=== PATIENT | male | born 1960 | race Caucasian/White ===

== ENCOUNTER 2018-01-21 10:37 | Emergency (ER) | payer MEDICARE ==
[2018-01-21] MEDS ORDERED: DIAZEPAM 5 MG TABLET PO ONE (10:46)
[2018-01-21] MEDS ORDERED: MORPHINE SULFATE 5 MG/ML PFS IVP ONE (10:46)
[2018-01-21] MEDS ORDERED: ACETAMINOPHEN 1,000 MG/100 ML BTL IVPB ONE (10:46)
--- NOTE | 2018-01-21 10:49 | Emergency Department Record ---
History of Present Illness - General Chief Complaint: Back Pain/Injury Stated Complaint: BACK PAIN Time Seen by Provider: 01/21/18 10:40 Source: Patient Mode of Arrival: Ambulatory Limitations: No limitations - History of Present Illness Initial Comments: 57 yo male presents from radiology with low back pain and spasms. He was laying down for a CT of the chest. Upon trying to sit up his low back tightened up. He has pain with any twisting or moving. No abdominal pain. The pain radiates to the legs. No weakness or numbness. No immediate changes in sensation, bowel or bladder function. He is remission from lung cancer. The CT is follow up of prior studies. Complaint: Back pain, Back injury -: Minutes(s) (20) Place: Other (Radiology) Radiation: Left leg, Right leg Severity: Moderate Quality: Aching, Sharp Consistency: Constant Improves With: Immobilization Worsens With: Movement, Sitting upright, Walking Context: Bending (onset sitting up after a CT scan moments ago) Associated Symptoms: Denies other symptoms - Related Data Previous Rx's Medication Instructions Recorded Diazepam [Valium] 5 mg PO Q8H #15 tab 01/21/18 Hydrocodone/Acetaminophen [[place] 1 each PO Q6H #15 tablet 01/21/18 7.5-325 Tablet] Allergies Allergy/AdvReac Type Severity Reaction Status Date / Time No Known Drug Allergies Allergy Verified 01/21/18 10:40 Review of Systems Constitutional: Denies: Chills, Fever, Malaise, Weakness Eyes: Denies: Eye discharge ENT: Denies: Congestion, Throat pain Respiratory: Denies: Cough, Dyspnea, Hemoptysis, Stridor, Wheezes Cardiovascular: Denies: Chest pain, Palpitations, Syncope Endocrine: Denies: Fatigue, Polydipsia, Polyuria Gastrointestinal: Denies: Abdominal pain, Diarrhea, Nausea, Vomiting Genitourinary: Denies: Dysuria, Frequency, Urgency Musculoskeletal: Reports: Back pain, Myalgia. Denies: Arthralgia, Joint swelling, Neck pain Skin: Denies: Bruising, Change in color, Rash Neurological: Denies: Headache, Numbness, Weakness Psychiatric: Denies: Anxiety Hematological/Lymphatic: Denies: Easy bleeding, Easy bruising Past Medical History - SOCIAL HISTORY Smoking Status: Current some day smoker - RESPIRATORY Hx Respiratory Disorders: Yes Hx COPD: Yes Comment:: pneumonthorax: SPONTAEOUS X 2 - CARDIOVASCULAR Hx Cardio Disorders: Yes Hx Deep Vein Thrombosis: Yes Hx Hypertension: Yes - NEURO Hx Neuro Disorders: No - GI Hx GI Disorders: No - Hx Genitourinary Disorders: No - ENDOCRINE Hx Endocrine Disorders: No - MUSCULOSKELETAL Hx Musculoskeletal Disorders: Yes Hx Back Injury: Yes Comment:: rhizotomy x2 - PSYCH Hx Psych Problems: No - HEMATOLOGY/ONCOLOGY Hx Hematology/Oncology Disorders: Yes Hx Cancer: Yes (LUNG) Family Medical History Hx Cancer: Father Physical Exam - General General Appearance: Alert, Oriented x3, Cooperative, No acute distress Limitations: No limitations - Head Head exam: Atraumatic, Normocephalic, Normal inspection - Eye Eye exam: Normal appearance, PERRL. negative: Conjunctival injection, Scleral icterus - ENT ENT exam: Normal exam, Mucous membranes moist Ear exam: Normal external inspection Nasal Exam: Normal inspection Mouth exam: Normal external inspection Teeth exam: Normal inspection Throat exam: Normal inspection - Neck Neck exam: Normal inspection, Full ROM. negative: Tenderness - Respiratory Respiratory exam: Normal lung sounds bilaterally. negative: Respiratory distress - Cardiovascular Cardiovascular Exam: Regular rate, Normal rhythm, Normal heart sounds Peripheral Pulses: 2+: Dorsalis Pedis (R) - GI/Abdominal GI/Abdominal exam: Soft. negative: Distended, Guarding, Pulsatile mass, Rebound , Rigid, Tenderness - Rectal Rectal exam: Deferred - exam: Deferred - Extremities Extremities exam: Normal inspection, Normal capillary refill (brisk). negative : Calf tenderness, Full ROM (straight leg raise causes low back pain), Pedal edema, Tenderness - Back Back exam: Reports: Normal inspection, Muscle spasm, Paraspinal tenderness, Tenderness. Denies: CVA tenderness (R), CVA tenderness (L), Vertebral tenderness Image of Body Front/Back: 1 - paraspinal tenderness, pain with any ROM, normal inspection - Neurological Neurological exam: Alert, Oriented X3 - Psychiatric Psychiatric exam: Normal affect, Normal mood. negative: Agitated, Anxious - Skin Skin exam: Dry, Intact, Normal color, Warm Course - Reevaluation(s) Reevaluation #1: Multiple prior chest, chest and abdominal CT's reviewed from the past. No prior acute findings, no aneurysms, no dissections, no active cancer. S/P thoracotomy. 01/21/18 10:50 The patient is starting to get relief I called radiology to have his outpatient CT reviewed at a STAT read this morning. 01/21/18 11:14 01/21/18 12:[address] of the chest was reviewed No acute process. Chronic prior findings unchanged. See full report. The pain is much more tolerable. He still hurts with twisting or moving DC home with instructions for close follow up with DR Pacheco as well as reasons to return 01/21/18 12:55 Dr Pacheco was notified of the ED visit. The patient can follow up with him Disposition Disposition: Discharge Clinical Impression: Lumbar strain Disposition: Home, Self-Care Condition: (1) Good Instructions: Low Back Strain (ED) Additional Instructions: Call Dr Pacheco for close follow up this week Return to the ER if you have any uncontrolled pain or any new concerns Prescriptions: Diazepam [Valium] 5 mg PO Q8H #15 tab Hydrocodone/Acetaminophen [[place] 7.5-325 Tablet] 1 each PO Q6H #15 tablet Forms: Patient Portal Access Time of Disposition: 12:30 Quality - Quality Measures Quality Measures: N/A - Blood Pressure Screening Does Patient Have Any of the Following: Active Dx of HTN Blood Pressure Classification: Hypertensive Reading Systolic Measurement: 184 Diastolic Measurement: 76 Screening for High Blood Pressure: Patient Exclusion, Hx of HTN [G9744]
[2018-01-21] MEDS ORDERED: HYDROCODONE/APAP 7.5/325MG TABLET PO ONE (12:28)
== END 2018-01-21 14:05 | disposition home or self-care (01) ==
LOC: ER 10:37
DX: S39.012A Strain of muscle, fascia and tendon of lower back, initial encounter (principal); X50.9XXA Other and unspecified overexertion or strenuous movements or postures, initial encounter; Y92.238 Other place in hospital as the place of occurrence of the external cause; I10 Essential (primary) hypertension; F17.210 Nicotine dependence, cigarettes, uncomplicated; Z85.118 Personal history of other malignant neoplasm of bronchus and lung; I73.9 Peripheral vascular disease, unspecified; Z51.81 Encounter for therapeutic drug level monitoring; Z79.01 Long term (current) use of anticoagulants
CPT/HCPCS: 99284 ×2; 96374; 96375; 85025; 85610; 80053; 71260; Q9967; J3490; J2270

== ENCOUNTER 2019-01-15 16:46 | Observation (INO) | payer MEDICARE ==
--- NOTE | 2019-01-15 17:04 | Emergency Department Record ---
History of Present Illness - General Chief complaint: ENT Stated complaint: ALMENDAREZ AND EAR BLEEDING Time Seen by Provider: 01/15/19 17:02 Source: Patient Mode of Arrival: Ambulatory Limitations: No limitations - History of Present Illness Initial comments: The patient is here due to the acute onset of L ear pain about 6 hours ago which then led to a bad ALMENDAREZ. The patient has had a sinus infection and drainage for about 2 weeks. This AM the L ear began hurting and then he felt a "POP" and then pain in the L ear and head. The patient then states the L ear began bleeding also. The ALMENDAREZ is mainly on the L side of the head. He denies any fall, trauma, or injury and the patient is on Warfarin due to PVD. There has been no confusion, vomiting, or neck pain. MD complaint: Ear pain Onset/Timin -: Hour(s) Location: L ear Severity: Moderate Severity scale (1-10): 8 Quality: Aching, Other Consistency: Constant Improves with: None Worsens with: None Context-Epistaxis: Warfarin use Associated Symptoms: Discharge from ear - Related Data Allergies Allergy/AdvReac Type Severity Reaction Status Date / Time No Known Drug Allergies Allergy Verified 01/15/19 16:55 Travel Screening - Travel/Exposure Within Last 30 Days Have you traveled within the last 30 days?: No - Travel/Exposure Within Last Year Have you traveled outside the [place] in the last year?: No - Additonal Travel Details Have you been exposed to anyone with a communicable illness?: No - Travel Symptoms Symptom Screening: None Review of Systems Constitutional: Denies: Chills, Fever Eyes: Denies: Eye discharge ENT: Reports: Congestion Respiratory: Reports: Cough. Denies: Dyspnea Cardiovascular: Denies: Arrhythmia, Chest pain Endocrine: Denies: Fatigue Gastrointestinal: Denies: Nausea Genitourinary: Denies: Dysuria Musculoskeletal: Denies: Arthralgia, Back pain Skin: Denies: Bruising Neurological: Denies: Abnormal gait, Confusion Psychiatric: Denies: Anxiety Past Medical History - SOCIAL HISTORY Smoking Status: Current some day smoker Alcohol Use: Occasional Alcohol Use Comment: 2 beers daily Drug Use: Occasional Drug Use Detail:: Marijuana - RESPIRATORY Hx Respiratory Disorders: Yes Hx COPD: Yes Comment:: pneumonthorax: SPONTAEOUS X 2 - CARDIOVASCULAR Hx Cardio Disorders: Yes Hx Deep Vein Thrombosis: Yes Hx Hypertension: Yes - NEURO Hx Neuro Disorders: No - GI Hx GI Disorders: No - Hx Genitourinary Disorders: No - ENDOCRINE Hx Endocrine Disorders: No - MUSCULOSKELETAL Hx Musculoskeletal Disorders: Yes Hx Back Injury: Yes Comment:: rhizotomy x2 - PSYCH Hx Psych Problems: No - HEMATOLOGY/ONCOLOGY Hx Hematology/Oncology Disorders: Yes Hx Cancer: Yes (LUNG) Family Medical History Any Significant Family History?: Yes Hx Cancer: Father Physical Exam - General General Appearance: Alert, Oriented x3, Cooperative, No acute distress - Head Head exam: Atraumatic, Normocephalic, Normal inspection - Eye Eye exam: Normal appearance, PERRL - ENT ENT exam: negative: Normal exam, TM's normal bilaterally (The R TM is normal but the L TM is not visualized due to blood in the canal.) Throat exam: Normal inspection. negative: Tonsillar erythema, Tonsillar exudate - Neck Neck exam: Normal inspection, Full ROM. negative: Lymphadenopathy, Meningismus (The neck is very supple.), Tenderness - Respiratory Respiratory exam: Normal lung sounds bilaterally. negative: Respiratory distress - Cardiovascular Cardiovascular Exam: Regular rate, Normal rhythm, Normal heart sounds - GI/Abdominal GI/Abdominal exam: Soft, Normal bowel sounds. negative: Tenderness - Extremities Extremities exam: Normal inspection, Full ROM, Normal capillary refill. negative: Tenderness - Back Back exam: Reports: Normal inspection - Neurological Neurological exam: Alert, Normal gait, Oriented X3. negative: Abnormal gait, Altered, Motor sensory deficit - Skin Skin exam: negative: Rash Course Vital Signs 01/15/19 16:56 Temperature 97.8 F Pulse Rate 75 Respiratory 20 Rate Blood Pressure 163/69 Pulse Ox 96 - Reevaluation(s) Reevaluation #1: The patient is doing better but is still having L ear pain. There is no further bleeding from the L ear. I did discuss the need to stay in the hospital overnight due to the patient's INR being 10 and the patient does agree. I then did discuss the case with Dr. Pacheco and he does agree with the plan for a short stay admission and recheck of the INR in the AM. 01/15/19 18:19 Medical Decision Making - Data Complexity MDM Data: Labs Ordered and/or Reviewed, X-Ray Ordered and/or Reviewed (Head CT: Neg for any acute changes.) - Lab Data Result diagrams: 01/15/19 17:15 01/15/19 17:15 Disposition Disposition: Admit Clinical Impression: Coumadin toxicity Qualifiers: Encounter type: initial encounter Injury intent: accidental or unintentional Qualified Code(s): T45.511A - Poisoning by anticoagulants, accidental ( unintentional), initial encounter Disposition: Still a Patient at [facility] Decision to Admit: Admit from ER Decision to Admit Date: 01/15/19 Decision to Admit Time: 18:21 Accepting Physician: Tara Time Discussed w/Accepting Physician: 18:21 Condition: (2) Stable Forms: Patient Portal Access Time of Disposition: 18:21 Quality - Quality Measures Quality Measures: N/A - Blood Pressure Screening View Details: Yes Does Patient Have Any of the Following: Active Dx of HTN Blood Pressure Classification: Hypertensive Reading Systolic Measurement: 163 Diastolic Measurement: 69 Screening for High Blood Pressure: Patient Exclusion, Hx of HTN [G9744]
[2019-01-15] MEDS ORDERED: ACETAMINOPHEN 1,000 MG/100 ML BTL IVPB ONE (17:08)
[2019-01-15 17:25] LABS: BASO % 1.2 % (0-6); EOS % 1.2 % (0-6); GRAN % 63.8 % (47-80); HEMATOCRIT 46.4 % (42.0-52.0); HEMOGLOBIN 16.4 gm/dl (14.0-18.0); MEAN CELL VOLUME 95.3 fl (81-97); MEAN CORPUSCULAR HEMOGLOBIN 33.7 pg (27-33); MEAN CORPUSCULAR HGB CONC 35.3 g/dl (32-36); MEAN PLATELET VOLUME 9.3 fl (7.4-10.4); MONO % 9.8 % (0-9); PLATELET COUNT 249 K/uL (130-400); RED BLOOD COUNT 4.87 M/uL (4.40-5.70); RED CELL DISTRIBUTION WIDTH 15.5 % (11.5-14.5); WHITE BLOOD COUNT W/O DIFF 6.5 K/uL (4.2-12.2)
[2019-01-15 17:32] LABS: BLOOD UREA NITROGEN 8 mg/dL (6-20); CREATININE 0.7 mg/dL (0.7-1.2); EST GLOMERULAR FILTRATION RATE > 60 mL/min
[2019-01-15 17:33] LABS: TOTAL PROTEIN 7.4 g/dL (6.6-8.7)
[2019-01-15 17:34] LABS: ALCOHOL 0.266 g/dL (0-0.010)
[2019-01-15 17:35] LABS: GLUCOSE,RANDOM 79 mg/dL (74-109)
[2019-01-15 17:37] LABS: ALT/SGPT 17 U/L (<41)
[2019-01-15 17:38] LABS: ALB/GLOB RATIO 1.7 (1.1-1.8); ALBUMIN 4.7 g/dL (4.0-5.0); ALKALINE PHOSPHATASE 79 U/L (40-129); AST/SGOT 29 U/L (10.0-50.0)
[2019-01-15 17:42] LABS: PARTIAL THROMBOPLASTIN TIME 69.9 SECONDS (24.5-39.1)
[2019-01-15 17:44] LABS: PROTHROMBIN TIME (PATIENT) 94.3 SECONDS (9.5-12.1)
[2019-01-15] MEDS ORDERED: CIPROFLOXACIN HCL/DEXAMETHASONE OTIC SUSP OT ONE ×2 (18:07→18:41)
[2019-01-15] MEDS ORDERED: CEFDINIR 300 MG CAPSULE PO ONE ×2 (18:13→18:41)
[2019-01-15] MEDS ORDERED: CEFTRIAXONE 1GM/50ML BAG 1 GM/50 ML BAG IVPB ONE (18:16)
[2019-01-15] MEDS: ACETAMINOPHEN 1,000 MG/100 ML BTL IVPB SCH (19:37)
[2019-01-15] MEDS: HYDROCODONE/APAP 5/325MG TABLET PO PRN (19:44)
[2019-01-15] MEDS ORDERED: SIMVASTATIN 20 MG TABLET PO SCH (22:00)
[2019-01-16] MEDS: HYDROCODONE/APAP 5/325MG TABLET PO PRN ×2 (00:58→06:49)
[2019-01-16] MEDS: ACETAMINOPHEN 1,000 MG/100 ML BTL IVPB SCH ×2 (00:58→06:13)
[2019-01-16] MEDS ORDERED: CEFTRIAXONE SODIUM 2 GM in 0.9 % SODIUM CHLORIDE 100ML 100 ML IVPB ONE (06:37)
[2019-01-16 06:40] LABS: PARTIAL THROMBOPLASTIN TIME 75.2 SECONDS (24.5-39.1)
[2019-01-16 06:42] LABS: PROTHROMBIN TIME (PATIENT) 127.5 SECONDS (9.5-12.1)
[2019-01-16 06:43] LABS: INR 13.6
--- NOTE | 2019-01-16 07:33 | CT SCAN REPORT ---
EXAM: CT SCAN OF THE HEAD HISTORY: PATIENT HAS HEADACHE. TECHNIQUE: Serial axial CT scan of the head was performed at 2.5 mm intervals from the base of the skull to the apex without the use of intravenous contrast. Sagittal and coronal reconstructions are provided. Comparison: CT scan of the head dated 06/05/13 is provided. FINDINGS: The ventricles, cistern, and sulci appear within normal limits for size, shape, and attenuation. There is no mass or mass effect. The shane white differentiation appear within normal limits. There is no CT evidence of intra or extraaxial fluid collection to suggest bleeding. Bone windows demonstrate no CT evidence of a fracture or dislocation of the skull. The paranasal sinuses demonstrate mild to moderate mucosal thickening suggesting chronic sinusitis. Clinical correlation is recommended. IMPRESSION: 1. NO CT EVIDENCE OF AN ACUTE INTRACRANIAL PROCESS. 2. MILD TO MODERATE MUCOSAL THICKENING WITHIN THE PARANASAL SINUSES SUGGESTS CHRONIC SINUSITIS. CLINICAL CORRELATION IS RECOMMENDED. JOB NUMBER: [id number] MTDD
[2019-01-16] MEDS ORDERED: AMLODIPINE BESYLATE 5MG TAB PO SCH (10:00)
--- NOTE | 2019-01-16 10:21 | Discharge Note ---
VTE H&P Assessment - Risk for VTE Risk for VTE: No Risk Level: Moderate Risk Assessment Date: 01/16/19 Risk Assessment Time: 10:15 VTE Orders Placed or Will Be Placed: No VTE Reason for No Prophylaxis: Contraindicated (coagulopathy secondary coumadin , on coumadin) Discharge Medications - Discharge Medications Prescriptions: Cefdinir 300 mg PO BID #20 capsule Hydrocodone/APAP 5/325Mg [[place] 5Mg/325Mg] 1 each PO Q6H PRN #12 tab PRN Reason: Pain - Mild To Moderate (1-7) Home Medications: Ambulatory Orders Amlodipine Besylate [Norvasc] 10 mg PO DAILY 03/25/14 [Last Taken 01/15/19] Pravastatin Sodium 40 mg PO QHS 03/25/14 [Last Taken 01/15/19] Cefdinir 300 mg PO BID #20 capsule 01/16/19 [Last Taken Unknown] Ciprofloxacin HCl/Dexameth [Ciprodex Otic Suspension] 4 drop OT BID btl [Last Taken Unknown] Hydrocodone/APAP 5/325Mg [[place] 5Mg/325Mg] 1 each PO Q6H PRN #12 tab 01/16/19 [ Last Taken Unknown] Discharge Note - Date Date of Discharge Note: 01/16/19 Disposition: Home, Self-Care Condition: (2) Stable Additional Instructions: stop coumadin and stop plavic follow up with Dr Pacheco on Saturday at 10:00am and please have bolprisca drawn before seeing me in the office on saturday at 8 am please set up orders to do a prothrombin time test(PT) and a cbc please give him the ciprodex drops 4 drops twice a day Prescriptions: Hydrocodone/APAP 5/325Mg [[place] 5Mg/325Mg] 1 each PO Q6H PRN #12 tab PRN Reason: Pain - Mild To Moderate (1-7) Referrals: Kieran Pacheco D.O. [Primary Care Provider] - Forms: Patient Portal Access Activity at Discharge: Increase Activity as Tolerated
[2019-01-16] MEDS: CIPROFLOXACIN HCL/DEXAMETHASONE OTIC SUSP OT SCH ×2 (10:31→10:32)
--- NOTE | 2019-01-19 09:51 | History and Physical Report ---
DATE: 01/15/2019 CHIEF COMPLAINT: Left ear pain and bleeding and elevated PT/INR from Coumadin use. HISTORY OF PRESENT ILLNESS: This 58-year-old male presented to the ER with 6 hours of left ear pain and a bad headache. He was seen by Dr. Reyes in the emergency department and diagnosed with a ruptured tympanic membrane, otitis media, and elevated PT/INR secondary to Coumadin use. The patient was recently treated for bronchitis diagnosed on 01/08/2019. Placed on azithromycin (Z-Mario), finished that about 2 days ago. He also was drinking when he came into the emergency department. His blood alcohol was 0.266. He admits to 4 beers a day. He stated he felt a pop in his ear and his ear started to feel a little better. He was admitted because of the alcohol, possibility of falling down and hitting his head with an elevated PT/INR and an otitis media. He was given cefdinir 300 mg orally in the emergency department and also 1 dose of Rocephin 1 g IV on 01/16/2019. His admission date was 01/15/2019. He is an observation patient. PAST MEDICAL HISTORY: He has severe peripheral arterial disease with bilateral femoral artery bypasses. Most of his problem has been in his right leg. He has also had a pneumothorax in the past and lung cancer. He had a chest tube for spontaneous pneumothorax x2 and he has COPD. He has coronary artery disease. He has had arterial occlusion of the legs requiring removal of the thrombus. He has hypertension, arthritis. He has had rhizotomies on his back x2. FAMILY/PSYCHOSOCIAL HISTORY: Right lower lung resection, bilateral fem artery bypass, chest tube x2. MEDICATIONS: 1. Pravastatin 40 mg at h.s. 2. Norvasc 10 mg daily. 3. Coumadin. It looks like 5 mg a day. We will check the dose but right now his Coumadin is being held. 4. Plavix 75 mg once a day, being held at this time until Saturday. ALLERGIES: No known drug allergies. SOCIAL HISTORY: He occasionally used marijuana. He admits to 4 beers a day. He has drank more because of ear pain is what he told me. Smoking some cigars. Advised the patient to quit smoking. FAMILY HISTORY: His father had cancer. REVIEW OF SYSTEMS: HEENT: He has some sinus congestion. He has the left ear pain. Draining blood from the left ear. Cough which is better than when he had his bronchitis approximately 6 days ago. Cardiovascular: No chest pain, palpitations, or arrhythmia. Respiratory: He does have COPD but breathing is stable at this time at his baseline. Vascular: He also has history of arterial occlusion both legs in the past. Gastrointestinal: No abdominal pain, nausea, vomiting, diarrhea, black stools, or bloody stools. Genitourinary: No dysuria, hematuria, frequency, or burning on urination. Neurological: No abnormal motion of his arms or legs. Balance is good. Ambulating to the bathroom well. Endocrine: No diabetes or thyroid disease. Integument: No skin rashes. Musculoskeletal: He has arthritis in his back. He has had rhizotomy x2. Psychiatric: No depression or psychological disorders. Hematology/Oncology: He has had lung cancer, being followed by Dr. Kamara. PHYSICAL EXAMINATION: VITALS: Temperature 98.0, pulse 72, blood pressure 149/52, respiratory rate 16, pulse ox 95% on room air. HEENT: Pupils are equal, round, and reactive to light and accommodation. Extraocular muscles are intact. The left ear has blood in the canal. Unable to see the tympanic membrane or to see hole. It may be just oozing and that is why it still is painful. Throat is clear. Right ear is normal. Slight congestion in his sinuses. NECK: Carotid pulses equal bilaterally. CARDIOVASCULAR: Regular rate and rhythm without murmurs, clicks, rubs, or gallops. RESPIRATORY: Clear to auscultation and percussion. Breath sounds equal bilaterally. ABDOMEN: Soft. Bowel sounds x4. No peritoneal signs. No rebound or rigidity. EXTREMITIES: Moving all 4 extremities. NEUROLOGIC: Cranial nerves II-XII intact. Deep tendon reflexes equal bilaterally. Neuromuscular is equal bilaterally. Sensory is equal bilaterally. ENDOCRINE: No polyuria or polydipsia. LABORATORY DATA: His WBC is 6500, hemoglobin 16.4, PT/INR in the emergency department was 10. It went up to 13.6 on the day of discharge. His blood alcohol is 0.266 in the emergency department. Potassium 4.0, BUN 8, creatinine 0.7. CT of the head with no acute changes. Gxux-iz-[id number] mucosal thickening within the paranasal sinus suggestive of chronic sinusitis. ASSESSMENT: 1. Left otitis media with ruptured tympanic membrane. 2. Coagulopathy secondary to Coumadin use. 3. History of peripheral arterial disease and on Coumadin therapy. 4. Acute intoxication. Blood alcohol was 0.266. 5. He has a history of using Z-Mario for bronchitis on 01/08/2019. PLAN: Follow up the patient as an outpatient. We will stop his Coumadin and Plavix until Saturday. I gave him 1 g of Rocephin IV and we will send him home with cefdinir 300 mg b.i.d. Stop the Plavix and Coumadin. Continue his other home medications. MTDD
--- NOTE | 2019-01-19 10:00 | Discharge Summary ---
DATE: 01/16/2019 DISCHARGE DIAGNOSES: 1. Left otitis media with ruptured tympanic membrane. 2. Coagulopathy secondary to Coumadin use. 3. Peripheral arterial disease and on Coumadin therapy. 4. Acute intoxication. Blood alcohol was 0.266. 5. History of using Z-Mario for bronchitis on 01/08/2019. ATTENDING PHYSICIAN: Kieran Pacheco DO REASON FOR HOSPITALIZATION: This 58-year-old male was seen through the emergency department for left ear pain and bleeding from the left ear. He takes Coumadin therapy but he also had some sinus congestion and recently had bronchitis, was on Z-Mario on 01/08/2019. He was drinking alcohol at 0.266 level. After evaluation by Dr. Reyes, he was concerned about sending him home because of his alcohol, falling down and hitting his head with his coagulopathy from Coumadin. He was admitted for observation and antibiotics. The patient was given a course of therapy. The patient in the emergency department was given cefdinir 300 mg orally. In the hospital, I gave him 1 g of Rocephin IV and rechecked his PT/INR, which went up to 13. However, he is still not bleeding at this time. I feel it is safe to go home and let it come down on its own rather than crashing it down. With his peripheral arterial disease, I feel that is too risky for causing an arterial occlusion of his legs. He is using [place] for pain at 5 mg every 4-6 weeks. CONDITION ON DISCHARGE: Much improved. DISCHARGE INSTRUCTIONS: Follow up with Dr. Pacheco on Saturday at 10 a.m. Also to obtain a PT/INR and a CBC on Saturday at 8 a.m. He will see me in the office at 10 a.m. DISCHARGE MEDICATION: 1. Norvasc 10 mg daily. 2. Pravastatin 40 mg at h.s. 3. Cefdinir 300 mg b.i.d. 4. Ciprofloxacin/dexamethasone 4 drops b.i.d. The bottle was given to him to go home with. 5. [place] 5 mg q.6 h. p.r.n. pain, 12 tablets given. If the pain is significant, he can go to 2 tablets. 6. Discontinue the Coumadin until Saturday. 7. Discontinue the Plavix until Saturday. [facility]
== END 2019-01-16 10:55 | disposition home or self-care (01) ==
LOC: ER 16:46 → MEDSURG 18:39
PROVIDERS: ADMIT Emergency Medicine; ATTEND Emergency Medicine
DX: T45.511A Poisoning by anticoagulants, accidental (unintentional), initial encounter (principal); H92.22 Otorrhagia, left ear; I10 Essential (primary) hypertension; J44.9 Chronic obstructive pulmonary disease, unspecified; I82.409 Acute embolism and thrombosis of unspecified deep veins of unspecified lower extremity; Z87.891 Personal history of nicotine dependence; Z95.820 Peripheral vascular angioplasty status with implants and grafts; F12.90 Cannabis use, unspecified, uncomplicated; Z85.118 Personal history of other malignant neoplasm of bronchus and lung; Z90.2 Acquired absence of lung [part of]
CPT/HCPCS: 85025; 85730 ×2; 85610 ×2; 80053; 70450; G0378 ×2; G0480; J0696; 80320; 96365; 99285

== ENCOUNTER 2019-03-20 19:09 | Emergency (ER) | payer MEDICARE ==
--- NOTE | 2019-03-20 19:42 | Emergency Department Record ---
History of Present Illness - General Chief complaint: Vomiting Stated complaint: VOMMITING,BLOOD IN STOOL Time Seen by Provider: 03/20/19 19:35 Source: Patient Mode of Arrival: Ambulatory Limitations: No limitations - History of Present Illness Initial comments: 58 yo male presents to ED for evaluation of non-productive cough symptoms, abdominal pain, and loose, dark-tarry stools that began earlier today. Patient denies fevers, reports chills and abdominal pain. 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 Patient reports associated abdominal pain symptoms. MD complaint: Abdominal pain, Diarrhea, Nausea, Vomiting Onset/Timin -: Hour(s) Description of Diarrhea: Other Associated Abdominal Pain: Yes Location: Diffuse Severity scale (1-10): 6 Quality: Sharp Context: Anticoagulant use Associated Symptoms: Nausea/vomiting - Related Data Home Medications Medication Instructions Recorded Confirmed Last Taken Albuterol Sulfate [Ventolin Hfa] 1 - 2 inh IH Q6H PRN 03/20/19 03/20/19 Unknown Clopidogrel Bisulfate [Clopidogrel] 75 mg PO DAILY 03/20/19 03/20/19 Unknown Warfarin Sodium 5 mg PO DAILY 03/20/19 03/20/19 Unknown Allergies Allergy/AdvReac Type Severity Reaction Status Date / Time No Known Drug Allergies Allergy Verified 01/15/19 16:55 Travel Screening - Travel/Exposure Within Last 30 Days Have you traveled within the last 30 days?: No - Travel Symptoms Symptom Screening: None Review of Systems Constitutional: Denies: Chills, Fever, Malaise, Night sweats Eyes: Denies: Eye discharge, Eye pain ENT: Denies: Congestion, Ear pain, Epistaxis Respiratory: Reports: Cough. Denies: Dyspnea Cardiovascular: Denies: Chest pain, Dyspnea on exertion Endocrine: Denies: Fatigue, Heat or cold intolerance Gastrointestinal: Reports: Abdominal pain, Diarrhea, Nausea, Vomiting Genitourinary: Denies: Incontinence, Retention Musculoskeletal: Denies: Arthralgia, Back pain Skin: Denies: Bruising, Change in color Neurological: Denies: Abnormal gait, Confusion, Headache, Seizure Psychiatric: Denies: Anxiety Hematological/Lymphatic: Reports: Blood Clots, Easy bleeding, Easy bruising. Denies: Anemia Past Medical History - SOCIAL HISTORY Smoking Status: Current some day smoker - RESPIRATORY Hx Respiratory Disorders: Yes Hx COPD: Yes Comment:: pneumonthorax: SPONTAEOUS X 2 - CARDIOVASCULAR Hx Cardio Disorders: Yes Hx Deep Vein Thrombosis: Yes Hx Hypertension: Yes Comment:: high cholesterol - NEURO Hx Neuro Disorders: No - GI Hx GI Disorders: No - Hx Genitourinary Disorders: No - ENDOCRINE Hx Endocrine Disorders: No - MUSCULOSKELETAL Hx Musculoskeletal Disorders: Yes Hx Back Injury: Yes Comment:: rhizotomy x2 - PSYCH Hx Psych Problems: No - HEMATOLOGY/ONCOLOGY Hx Hematology/Oncology Disorders: Yes Hx Cancer: Yes (LUNG) Hx Chemotherapy: No Hx Radiation Therapy: No Family Medical History Any Significant Family History?: Yes Hx Cancer: Father Physical Exam - General General Appearance: Alert, Oriented x3, Cooperative, Moderate distress Limitations: No limitations - Head Head exam: Atraumatic, Normocephalic, Normal inspection Head exam detail: negative: Abrasion, Contusion, Ma's sign, General tenderness, Hematoma, Laceration - Eye Eye exam: Normal appearance. negative: Conjunctival injection, Periorbital swelling, Periorbital tenderness, Scleral icterus - ENT Ear exam: negative: Auricular hematoma, Auricular trauma Nasal Exam: negative: Active bleeding, Discharge, Dried blood, Foreign body Mouth exam: negative: Drooling, Laceration, Muffled voice, Tongue elevation - Neck Neck exam: Normal inspection. negative: Meningismus, Tenderness - Respiratory Respiratory exam: Rhonchi. negative: Rales, Respiratory distress, Stridor, Wheezes - Cardiovascular Cardiovascular Exam: Normal rhythm, Normal heart sounds, Irregular rhythm - GI/Abdominal GI/Abdominal exam: Soft, Tenderness (Mild, diffuse TTP on examination, no rebound or guarding present.). negative: Rebound, Rigid - Rectal Rectal exam: Black stool, Heme (+) stool, Normal rectal tone - Extremities Extremities exam: Normal inspection. negative: Pedal edema, Tenderness - Back Back exam: Denies: CVA tenderness (R), CVA tenderness (L) - Neurological Neurological exam: Alert, Normal gait, Oriented X3 - Psychiatric Psychiatric exam: Normal affect, Normal mood - Skin Skin exam: Normal color. negative: Abrasion Type of lesion: negative: abrasion Course Vital Signs 03/20/19 19:16 Temperature 98.7 F Pulse Rate 113 H Respiratory 18 Rate Blood Pressure 174/81 Pulse Ox 97 - Reevaluation(s) Reevaluation #1: 03/20/19 19:47 EKG: NSR 93 Normal axis, IVCD ST-T wave changes II, III, AVF, V5, V6. Reevaluation #2: 03/20/19 20:30 Laboratory studies were reviewed and are grossly unremarkable for an acute process except: INR 18.3 Per Critical Care guidelines, will administer FFP 2 units and Vitamin k 5 mg PO for INR > 9 without life threatening bleeding present. Patient updated on the plan of care as discussed. Reevaluation #3: 03/20/19 20:59 CT Brain: preliminary review appears negative for hemorrhage, awaiting officially review from radiology. Reevaluation #4: 03/20/19 21:46 CXR: No acute infiltrate, no acute process Chronic changes Post-op changes right shoulder 03/20/19 21:57 CT Head: No acute intra-cranial hemorrhage CT Abdomen and Pelvis: Cholelithiasis without cholecystitis Post-operative changes femoral arteries bilaterally Patient was updated on all results, will initiate transfer for further evaluation. 03/20/19 22:20 Case was discussed with Dr. Anne, will accept transfer at this time pending bed placement. IV protonix ordered. Medical Decision Making - Lab Data Result diagrams: 03/20/19 19:27 03/20/19 19:27 Disposition Disposition: Transfer Clinical Impression: Lower GI bleed, Supratherapeutic INR Disposition: Acute Care Hospital Transfer Transfer To: [facility] Reason For Transfer: Lower GI bleed, elevated INR Accepting Physician: Omid Time Discussed w/Accepting Physician: 22:21 Condition: (2) Stable Forms: Patient Portal Access Time of Disposition: 22:22 Quality - Quality Measures Quality Measures: N/A - Blood Pressure Screening Does Patient Have Any of the Following: No Blood Pressure Classification: Pre-Hypertensive BP Reading Systolic Measurement: 174 Diastolic Measurement: 81 Screening for High Blood Pressure: < Pre-Hypertensive BP, F/U Documented > [G8950] Pre-Hypertensive Follow-up Interventions: Referral to alternative/primary care provider.
[2019-03-20] MEDS ORDERED: 0.9 % SODIUM CHLORIDE 1000ML 500 ML IV SCH (19:45)
[2019-03-20 19:49] LABS: ABSOLUTE NEUTROPHIL COUNT 6.94; BASO % 0.2 % (0-6); EOS % 0.6 % (0-6); GRAN % 70.4 % (47-80); HEMATOCRIT 42.3 % (42.0-52.0); HEMOGLOBIN 15.2 gm/dl (14.0-18.0); MEAN CELL VOLUME 91.2 fl (81-97); MEAN CORPUSCULAR HEMOGLOBIN 32.8 pg (27-33); MEAN CORPUSCULAR HGB CONC 35.9 g/dl (32-36); MEAN PLATELET VOLUME 10.2 fl (7.4-10.4); MONO % 9.8 % (0-9); PLATELET COUNT 182 K/uL (130-400); RED BLOOD COUNT 4.64 M/uL (4.40-5.70); RED CELL DISTRIBUTION WIDTH 13.8 % (11.5-14.5); WHITE BLOOD COUNT W/O DIFF 9.9 K/uL (4.2-12.2)
[2019-03-20 19:57] LABS: BLOOD UREA NITROGEN 21 mg/dL (6-20); CREATININE 0.7 mg/dL (0.7-1.2); EST GLOMERULAR FILTRATION RATE > 60 mL/min; LIPASE 26 U/L (13-60); TOTAL PROTEIN 7.7 g/dL (6.6-8.7)
[2019-03-20 19:59] LABS: GLUCOSE,RANDOM 96 mg/dL (74-109)
[2019-03-20 20:02] LABS: ALB/GLOB RATIO 1.9 (1.1-1.8); ALKALINE PHOSPHATASE 76 U/L (40-129); ALT/SGPT 44 U/L (<41); AST/SGOT 48 U/L (10.0-50.0)
[2019-03-20 20:10] LABS: INR 18.3; PROTHROMBIN TIME (PATIENT) 164.2 SECONDS (9.5-12.1)
[2019-03-20] MEDS ORDERED: PHYTONADIONE 10 MG/ML AMPUL PO ONE (20:29)
[2019-03-20 21:15] LABS: ABO GROUP A; RH TYPE POSITIVE
[2019-03-20 21:17] LABS: ANTIBODY SCREEN NEGATIVE (NEGATIVE)
[2019-03-20] MEDS ORDERED: PANTOPRAZOLE SODIUM IV 40 MG VIAL IVP ONE (22:21)
[2019-03-20] MEDS ORDERED: MORPHINE SULFATE 10MG/1ML **1ML VIAL IVP ONE (22:46)
[2019-03-20] MEDS ORDERED: ONDANSETRON HCL IV 4 MG/2 ML VIAL IVP ONE (23:09)
[2019-03-21] MEDS ORDERED: HYDROMORPHONE HCL 2 MG/ML VIAL IVP ONE (01:18)
--- NOTE | 2019-03-23 13:56 | RADIOLOGY REPORT ---
EXAM: CHEST, TWO VIEWS HISTORY: COUGH AND ABDOMINAL PAIN. TECHNIQUE: PA and lateral views of the chest were obtained. Comparison: Two view chest 07/16/17. FINDINGS: The heart size is normal. No definite acute infiltrate seen. No pleural effusion or pneumothorax evident. Spurring in the spine. Surgical clips in the right perihilar region again noted. Previously seen faint nodular density overlying the anterior right fifth intercostal space not clearly identified today. There is some deformity of the lateral aspect of the right clavicle. This was present previously as well although seen somewhat more prominently with a greater amount of the right shoulder included on the chest film today. This is of uncertain significance and a follow-up nonemergent right shoulder series would be suggested. IMPRESSION: 1. NO DEFINITE ACUTE INFILTRATE SEEN. 2. PROMINENT SPURRING IN THE SPINE. 3. POSTOP CHANGES RIGHT HILAR REGION. 4. SOME DEFORMITY LATERALLY OF THE RIGHT CLAVICLE OF UNCERTAIN SIGNIFICANCE. FOLLOW-UP NONEMERGENT RIGHT SHOULDER SERIES SUGGESTED. JOB NUMBER: [id number] MTDD
--- NOTE | 2019-03-23 14:16 | CT SCAN REPORT ---
EXAM: HEAD CT HISTORY: COAGULOPATHY, HEADACHE. TECHNIQUE: Axial CT scan of the head was performed without IV contrast. Comparison: Head CT 01/15/19. FINDINGS: No definite acute intracranial hemorrhage identified. No focal mass effect or midline shift evident. Mild generalized atrophy. No definite acute infarct or intracranial mass lesion seen. Some membrane thickening in the maxillary antra and in the frontal sinuses, minimally also in the ethmoid and sphenoid sinuses. No depressed calvarial fracture evident. Compared to the prior CT there has overall been slight reduction in the degree of the membrane thickening in the paranasal sinuses. IMPRESSION: 1. NO DEFINITE ACUTE INTRACRANIAL HEMORRHAGE OR FOCAL MASS EFFECT EVIDENT. 2. MEMBRANE THICKENING IN SEVERAL OF THE PARANASAL SINUSES WITH OVERALL SLIGHT IMPROVEMENT COMPARED WITH 01/15/19. JOB NUMBER: [id number] MTDD
--- NOTE | 2019-03-23 14:26 | CT SCAN REPORT ---
EXAM: EMERGENCY CT SCAN OF THE ABDOMEN AND PELVIS WITHOUT CONTRAST HISTORY: ABDOMINAL PAIN, VOMITING. LUNG CANCER. TECHNIQUE: Axial CT scan of the abdomen and pelvis was performed without oral or IV contrast at the referring physician's request. Comparison: Prior abdomen CT 03/27/16. Prior pelvic CT 03/02/12. FINDINGS: There are probably some tiny calcified gallstones in the dependent portion of the gallbladder. No additional findings to suggest acute cholecystitis currently. Central renal calcifications bilaterally are probably renal arterial in nature although difficult to exclude a nonobstructing central intrarenal calculus on either side. There is no hydronephrosis or hydroureter on either side. No definite ureteral calculus seen on either side and no bladder calculus evident. Evaluation of the bowel and viscera is extremely limited without oral or IV contrast. Given this limitation, no definite hepatic, splenic, adrenal, pancreatic, or renal mass identified. There is a very small nodule just posterior to the right lobe of the liver. This was present on the prior 03/27/16 exam and appears unchanged in size and so is presumably of no clinical significance although of uncertain etiology. This was seen on image 35 of 161. There are probably bilateral femoral artery stents partially seen in the lower most images. Correlation with the surgical procedure is suggested. No definite appendicitis identified. No definite free intraperitoneal air or free intraperitoneal fluid evident. Degenerative change in the lumbar spine at multiple levels. IMPRESSION: 1. PROBABLE CHOLELITHIASIS, HOWEVER, NO ADDITIONAL FINDINGS TO SUGGEST ACUTE CHOLECYSTITIS. 2. CENTRAL RENAL CALCIFICATIONS ARE PROBABLY ALL ARTERIAL IN NATURE. NO HYDRONEPHROSIS OR URETERAL CALCULUS ON EITHER SIDE. 3. NO APPENDICITIS, FREE AIR, OR FREE FLUID EVIDENT. 4. SOME CHRONIC APPEARING FINDINGS NOTED ABOVE. JOB NUMBER: [id number] [facility]
== END 2019-03-21 02:40 | disposition short-term general hospital (02) ==
LOC: ER 19:09
DX: K92.1 Melena (principal); R79.1 Abnormal coagulation profile; R05 Cough; R10.11 Right upper quadrant pain; R10.13 Epigastric pain; R11.2 Nausea with vomiting, unspecified; J44.9 Chronic obstructive pulmonary disease, unspecified; I10 Essential (primary) hypertension; F17.210 Nicotine dependence, cigarettes, uncomplicated; Z79.01 Long term (current) use of anticoagulants; Z85.118 Personal history of other malignant neoplasm of bronchus and lung
CPT/HCPCS: 36430; 70450; 71046; 74176; 80053; 83690; 85025; 85610; 86850; 86900; 86901; 93005; 93010; 96361; 96374; 96375; 99285; C9113; J2270; J2405; J7030